=== PATIENT | male | born 1970 | race Caucasian/White ===

== ENCOUNTER 2018-07-12 16:30 | Emergency (ER) | payer MEDICAID, OTHER ==
[2018-07-12] MEDS ORDERED: Bacitracin Oint 1 GM U/D Packet TOP ONE (16:49)
[2018-07-12] MEDS ORDERED: Lidocaine 1% with EPINEPHrine 1:100,000 50 ML MDV SUBCUT STA (16:49)
--- NOTE | 2018-07-12 17:04 | EDM.PDOC ---
ED HPI GENERAL MEDICAL PROBLEM - General Chief Complaint: Laceration Stated Complaint: LACERATION ON HEAD Time Seen by Provider: 07/12/18 16:49 Source of Information: Reports: Patient, Family, RN Notes Reviewed History Limitations: Reports: No Limitations - History of Present Illness INITIAL COMMENTS - FREE TEXT/NARRATIVE: 48-year-old gentleman presents to the emergency department today with a laceration to his scalp he injured himself in a crawl space when he lifted his head.no loss of consciousness no functional complaints - Related Data Allergies Allergy/AdvReac Type Severity Reaction Status Date / Time No Known Allergies Allergy Verified 07/12/18 16:49 Home Meds: Home Meds Cetirizine HCl [Wal-Zyr] 10 mg PO 07/12/18 [History] Past Medical History - Past Health History Medical/Surgical History: Denies Medical/Surgical History Social & Family History - Tobacco Use Smoking Status *Q: Never Smoker ED ROS GENERAL - Review of Systems Review Of Systems: See Below Constitutional: Reports: No Symptoms Skin: Reports: Wound ED EXAM, SKIN/RASH Exam: See Below Text/Narrative:: Examination of the scalp she does have a 6 cm laceration it is partially through the dermis bleeding is controlled no functional complaints Exam Limited By: No Limitations General Appearance: Alert, WD/WN, No Apparent Distress ED SKIN PROCEDURES - Laceration/Wound Repair Right Head Lac/Wound length In cm: 6 Appearance: Subcutaneous, Irregular, Clean Distal NVT: Neuro & Vascular Intact, No Tendon Injury Anesthetic Type: Local Local Anesthesia - Lidocaine (Xylocaine): 1% with EPI Local Anesthetic Volume: 2cc Skin Prep: Saline Saline Irrigation (cc's): 60 Exploration/Debridement/Repair: Wound Explored, In a Bloodless Field, Explored to Base Closed with: Faith Tetanus Status Addressed: Yes (2009) Complications: No Course - Vital Signs Last Recorded V/S: Last Vital Signs Temp 96.3 F 07/12/18 16:54 Pulse 87 07/12/18 16:54 Resp 16 07/12/18 16:54 BP 149/93 H 07/12/18 16:54 Pulse Ox 96 07/12/18 16:54 - Orders/Labs/Meds Orders: Active Orders 24 hr Category Date Time Status Vaccines to be Administered [RC] PER UNIT ROUTINE Care 07/12/18 17:09 Ordered Diphth,Pertuss(Acell),Tet Vac [Adacel] Med 07/12/18 17:09 Once 0.5 ml IM .ONCE ONE Meds: Medications Discontinued Medications Generic Name Dose Route Start Last Admin Trade Name Jose Guadalupe PRN Reason Stop Dose Admin Bacitracin 1 dose 07/12/18 16:49 07/12/18 17:02 Bacitracin Oint 1 Gm TOP 07/12/18 16:50 1 dose ONETIME ONE Administration Lidocaine/Epinephrine 20 ml 07/12/18 16:49 07/12/18 17:01 Xylocaine 1% With Epinephrine 1:100,000 SUBCUT 07/12/18 16:50 50 ml NOW STA Administration Departure - Departure Time of Disposition: 17:09 Disposition: Home, Self-Care 01 Condition: Good Clinical Impression: Scalp laceration Qualifiers: Encounter type: initial encounter Qualified Code(s): S01.01XA - Laceration without foreign body of scalp, initial encounter - Discharge Information Referrals: PCP,None [Primary Care Provider] - Forms: ED Department Discharge Additional Instructions: Follow wound care instruction sheet, follow-up with your primary care return to the emergency department for suture removal - My Orders Last 24 Hours: My Active Orders 07/12/18 17:09 Vaccines to be Administered [RC] PER UNIT ROUTINE Diphth,Pertuss(Acell),Tet Vac [Adacel] 0.5 ml IM .ONCE ONE - Assessment/Plan Last 24 Hours: My Active Orders 07/12/18 17:09 Vaccines to be Administered [RC] PER UNIT ROUTINE Diphth,Pertuss(Acell),Tet Vac [Adacel] 0.5 ml IM .ONCE ONE Plan: Assessment Acuity = acute Site and laterality = scalp laceration Etiology = secondary to trauma Manifestations = none Location of injury = Home Lab values = none Plan Suture removal in 10 days, follow wound care instruction sheet follow-up with primary care return emergency department for suture removal This note was dictated using [employer] voice recognition software please call with any questions on syntax or grammar.
[2018-07-12] MEDS ORDERED: Diphtheria,Pertussis(Acell),Tetanus Vaccine 0.5 ML SDV IM ONE (17:09)
== END 2018-07-12 17:24 | disposition home or self-care (01) ==
LOC: JP.ED 16:30
DX: S01.01XA Laceration without foreign body of scalp, initial encounter (principal); Z23 Encounter for immunization; W22.8XXA Striking against or struck by other objects, initial encounter; Y92.009 Unspecified place in unspecified non-institutional (private) residence as the place of occurrence of the external cause
CPT/HCPCS: 12002; 90471; 90715; 99282